=== PATIENT | male | born 1995 | race Hispanic/Latino ===

== ENCOUNTER 2017-05-03 22:54 | Emergency (ER) | payer OTHER ==
[2017-05-03] MEDS ORDERED: Acetaminophen 500 MG TAB ONE (23:55)
== END 2017-05-04 00:10 | disposition short-term general hospital (02) ==
LOC: ERS 22:54
DX: L60.0 Ingrowing nail (principal); Z79.52 Long term (current) use of systemic steroids; Z79.899 Other long term (current) drug therapy
CPT/HCPCS: 99283

== ENCOUNTER 2017-05-04 22:16 | Emergency (ER) | payer OTHER | END 2017-05-04 22:55 | LOC: ERS 22:16 | DX: S00.81XA Abrasion of other part of head, initial encounter (principal); X58.XXXA Exposure to other specified factors, initial encounter | CPT/HCPCS: 99283 ==

== ENCOUNTER 2024-04-28 06:57 | Outpatient (CLI) | payer OTHER | END 2024-04-28 06:58 | disposition home or self-care (01) | LOC: BICULT 06:57 | PROVIDERS: ATTEND Student in an Organized Health Care Education/Training Program | DX: R10.11 Right upper quadrant pain (principal) | CPT/HCPCS: 76705 ==